=== PATIENT | female | born 1995 | race Caucasian/White ===

== ENCOUNTER 2017-11-14 07:16 | Inpatient (IN) | payer OTHER ==
[~2017-11-14] VITALS: Ht 170.2 cm; Wt 83.0 kg
[~2017-11-14 07:16] MED LIST: HYDR-385 PO; KET10 PO; PREN-127 PO; SULF-198 PO; [UNRECOGNIZED DRUG - REMARK]
[2017-11-17] MEDS ORDERED: FAMOTIDINE(*) 20MG/50ML PREMIX 50 ML IVPB PRN (19:25)
[2017-11-17] MEDS ORDERED: fentaNYL CITR 100 MCG/2 ML AMP IVP PRN (19:25)
[2017-11-17] MEDS ORDERED: LR(*) 1000 ML BAG 1,000 ML IV PRN (19:25)
[2017-11-17] MEDS ORDERED: cefOXitin/DEX(*) 2GM/50ML PREM 50 ML IVPB PRN (19:25)
[2017-11-17] MEDS ORDERED: FLUSH 10 ML SYR IVP PRN (19:25)
[2017-11-17] MEDS ORDERED: LIDOCAINE 1% LOCAL 300 MG/30ML INJ PRN (19:25)
[2017-11-17] MEDS ORDERED: METOCLOPRAMIDE 10 MG/2 ML SDV IVP PRN (19:25)
[2017-11-17] MEDS ORDERED: LIDOCAINE/SOD BICARB 8.4% SYR SC PRN (19:25)
[2017-11-17 20:00] VITALS: BP 122/77; Ht 170.2 cm; Wt 83.0 kg
[2017-11-17] MEDS ORDERED: MISOPROSTOL 25 MCG CAP PV PRN (20:35)
[2017-11-17 20:50] LABS: PLATELET COUNT, AUTOMATED 199 K/uL (150-450)
[2017-11-18] MEDS ORDERED: OXYTOCIN 30 UNIT/D5LR 500 ML 500 ML ONE (03:27)
--- NOTE | 2017-11-18 04:56 | History & Physical ---
History of Present Illness Age of Patient: 22 : 1 Para or TPAL: 0 EDC per LMP: Nov 12, 2017 EDC per U/S: Nov 14, 2017 Estimated Gestational Age: 40.6 Chief Complaint Labor induction for post-term. History of Present Illness Admitted for labor induction due to post-term status, almost 41 weeks. Uncomplicated , although third trimester ultrasound exams were done because fetus was possibly SGA, showing 14th and 20th percentile on exams done at 34 and 36 weeks respectively. No other complications. record is reviewed. History Patient's Blood Type: O Positive Rubella Status: Equivocal Group B Strep Screen: Negative (10/10/2017, lab report not in chart) Obstetrical History: Primigravida. Past Medical History: Exercise-induced asthma, no recent use of meds. Tonsillectomy at age 9. Allergies: Coded Allergies: No Known Allergies (Verified Allergy, Mild, 04/29/11) Social History: , present and supportive. Student. Denies use of alcohol, tobacco, or illicit drugs. Med Rec Home Meds Reported Medications Vits W-Ca,Fe,Fa(<1MG) ( VITAMINS) 1 Each Tablet, 1 EACH PO DAILY, TAB 09/22/17 [No Known Meds] No Conflict Check, 0 Refills 04/29/11 Exam General Exam Vital Signs Vital Signs Date Time Temp Pulse Resp B/P (MAP) Pulse Ox O2 Delivery O2 Flow Rate FiO2 11/17/17 20:00 98.7 90 18 122/77 (92) 96 Room Air General Apperance: Other (alert, in obvious pain due to contractions) Neuro: No Gross deficits Eyes: Normal Extraocular Movement & Vison ENT: Normal, Moist Mucous Membranes Neck: No Masses Cardiovascular: Regular Rate and Rhythm Respiratory: No Respiratory Distress, Clear to Auscultation Abdomen: Gravid - Non-Tender : No CVA Tenderness Musculoskeletal: No Weakness/Pain Extremities: No Cyanosis,Clubbing or Edema, Reflexes (2+/4 and symmetric), No Tender Calves Integumentary: Skin Intact without Lesions or Rash Psychological: Alert & Oriented X3, Appropriate Mood & Affect Cervical Dialation: 2 (per RN on admission) Cervical Effacement (%): 50 Cervical Position: Posterior Presentation: Vertex Fetus Heart Tones: 120 FHT Category: I Medical Decision Making Data Points Result Diagram: 11/17/172044 VTE Prophylasis: Adult Pharmacological Contraindicati: Pt at Low Risk for VTE Mechanical Contraindications: Pt at Low Risk for VTE Assessment and Plan Problems: (1) Post term over 40 weeks Assessment & Plan: Labor induced with a single dose of Misoprostol 25 mcg vaginally, with SROM at about 0145 hours, and good progress in labor. I anticipate a normal vaginal . Patient wants to avoid all analgesia and anesthesia at this time. Copies to: BEHZAD VILLANUEVA MD, MARK F MD Nov 18, 2017 04:56
[2017-11-18] MEDS ORDERED: BENZOCAINE 20% 60 ML BTL TP PRN (06:30)
[2017-11-18] MEDS ORDERED: ACETAMINOPHEN 325 MG TAB PO PRN (06:30)
[2017-11-18] MEDS ORDERED: GLYCERIN/WITCH HAZEL LEAF 1 PK TOP PRN (06:30)
[2017-11-18] MEDS ORDERED: LANOLIN OINT 7 GM TUBE TP PRN (06:30)
--- NOTE | 2017-11-18 06:38 | OB Delivery Note ---
Delivery Note Vaginal Delivery Type: Spont. Vaginal Delivery Delivery Date: Nov 18, 2017 Delivery Time: 05:22 Estimated Gestational Age(wks): 40 6/7 Length of Labor Stage I (hrs): 2.53 Length of Labor Stage II (hrs): 0.44 Labor Stage III (minutes): 13 Delivery Anesthesia: Local Sex: Female Infant Weight (gms): 3250 (7# 2.7 oz) Apgars: 1 Minute (8), 5 Minute (9) Repair Needed: Laceration, Perineal (with bilateral inner labial extensions), 2nd Degree Estimated Blood Loss: 500 (about average EBL) Delivery Complications: Laceration, Nuchal Cord Notes: Spontaneous vaginal delivery of a healthy female infant. Loose nuchal cord easily reduced as the shoulders were delivering. Only laceration was a 2nd degree midline perineal laceration, with bilateral inner labial extensions, close to the level of the urethral meatus. Under local anesthesia with 1% Lidocaine, the extensions were repaired with continuous simple sutures of 3-0 Vicryl. The remainder of the 2nd degree perineal laceration was repaired in layers like an episiotomy with a continuous 3-0 Vicryl suture. No evidence of rectal injury on digital rectal exam. EBL average, about 500 ml. Net Making Supervisor in Attendence: No Copies to: BEHZAD VILLANUEVA MD, MARK F MD Nov 18, 2017 06:38
[2017-11-18] MEDS: IBUPROFEN 800 MG TAB PO SCH ×2 (07:02→14:54)
[2017-11-18 07:05] VITALS: BP 122/73
[2017-11-18] MEDS: MULTIVITAMINS (PRENATAL) TAB PO SCH (09:00)
[2017-11-18 09:15] VITALS: BP 127/61
[2017-11-18] MEDS ORDERED: INFLUENZA VIRUS VAC 0.5 ML SYR IM ONLY ONE (10:00)
[2017-11-18] MEDS ORDERED: DIPHTH/TETANUS/ACEL. PERTUSSIS IM ONLY ONE (10:00)
[2017-11-18] MEDS ORDERED: MEASLES,MUMP,RUBELLA VAC 0.5ML SUBQ ONE (10:00)
[2017-11-18] MEDS: APAP/HYDROCODONE 325/5 TAB PO PRN ×2 (13:11→20:09)
[2017-11-18 13:27] VITALS: BP 116/62
[2017-11-18] MEDS ORDERED: LIDOCAINE 1% LOCAL 300 MG/30ML 30 ML ONE (14:14)
[2017-11-18 17:00] VITALS: BP 123/69
[2017-11-18 20:00] VITALS: BP 123/73
[2017-11-19] MEDS: IBUPROFEN 800 MG TAB PO SCH ×2 (01:00→06:00)
[2017-11-19 03:46] VITALS: BP 112/56
--- NOTE | 2017-11-19 07:43 | OB/GYN Progress Note ---
OB Subjective Progress Notes Subjective Feeling fine, wants to go home. Ambulating and voiding well. Mild lochia. Perineum and labia mildly-moderately tender, but relieved by oral and topical anesthesia. Baby doing well, nursing OK. OB Objective Physical Exam Vital Signs Date Time Temp Pulse Resp B/P (MAP) Pulse Ox O2 Delivery O2 Flow Rate FiO2 11/19/17 03:46 97.8 83 16 112/56 (74) 11/18/17 20:00 Room Air 11/18/17 07:05 96 General Appearance: Alert/Awake/No Acute Distress Cardiovascular: Regular Rate and Rhythm Respiratory: No Respiratory Distress, Clear to Auscultation Abdomen: Soft, Non-Tender, Non-Distended, Bowel Sounds Present, Fundus Firm (U- 1), Non-Tender : No CVA Tenderness Extremities: No Cyanosis,Clubbing or Edema, No Tender Calves Psychological: Alert & Oriented X3, Appropriate Mood & Affect Result Diagram: 11/19/17 0607 Assessment and Plan Problems: (1) Encounter for care and examination of mother immediately after delivery Status: Acute Assessment & Plan: Doing well , ready for discharge today. (2) Post term over 40 weeks Status: Resolved BEHZAD VILLANUEVA MD Nov 19, 2017 07:43
[2017-11-19] MEDS ORDERED: IBUP800T37 PO (07:48)
[2017-11-19] MEDS ORDERED: Benzocaine 60 ML TP (07:48)
[2017-11-19] MEDS ORDERED: ACET-2007 PO (07:48)
[2017-11-19] MEDS ORDERED: TUCKS TOP (07:48)
[2017-11-19] MEDS ORDERED: Lanolin TP (07:48)
--- NOTE | 2017-11-19 07:52 | OB/GYN Discharge Summary ---
Discharge Summary Reason for Hosp/Final Diag: (1) Encounter for care and examination of mother immediately after delivery Status: Acute Hospital Course & Plan: After normal term delivery of a healthy female , the patient had no complications. She was discharged home about 30 hours after delivery, in good condition. (2) Post term over 40 weeks Status: Resolved Lates Vital Signs Vital Signs Date Time Temp Pulse Resp B/P (MAP) Pulse Ox O2 Delivery O2 Flow Rate FiO2 11/19/17 03:46 97.8 83 16 112/56 (74) 11/18/17 20:00 Room Air 11/18/17 07:05 96 Weight (Pounds): 183 Result Diagram: 11/19/17 0607 Condition: Improved Discharge: Home, Self Alf Meds Reported Medications Vits W-Ca,Fe,Fa(<1MG) ( VITAMINS) 1 Each Tablet, 1 EACH PO DAILY, TAB 09/22/17 Discontinued Reported Medications [No Known Meds] No Conflict Check, 0 Refills 04/29/11 [facility] [phone] Follow up in: 6 wks PP or PO Discharge Diet: As Tolerates Discharge Activity: As Tolerates, No Heavy Lifting x 6 wks, Pelvic Rest Special Instructions: Copies to: BEHZAD VILLANUEVA MD, MARK F MD Nov 19, 2017 07:52
[2017-11-19] MEDS ORDERED: DOCUSATE CALCIUM 240 MG CAP PO SCH (09:00)
[2017-11-19] MEDS: MULTIVITAMINS (PRENATAL) TAB PO SCH (09:18)
[2017-11-19 09:20] VITALS: BP 107/70
== END 2017-11-19 11:35 | disposition home or self-care (01) | DRG 775 ==
LOC: OB 11-17 19:20
PROVIDERS: ADMIT Obstetrics & Gynecology; ATTEND Obstetrics & Gynecology
PROC: 3E0P7VZ Introduction of Hormone into Female Reproductive, Via Natural or Artificial Opening (ICD-10-PCS; 2017-11-17)
PROC: 10E0XZZ Delivery of Products of Conception, External Approach (ICD-10-PCS; principal; 2017-11-18)
PROC: 0KQM0ZZ Repair Perineum Muscle, Open Approach (ICD-10-PCS; 2017-11-18)
DX: O48.0 Post-term pregnancy (principal); O70.1 Second degree perineal laceration during delivery; O69.81X0 Labor and delivery complicated by cord around neck, without compression, not applicable or unspecified; Z37.0 Single live birth; Z3A.40 40 weeks gestation of pregnancy
CPT/HCPCS: 36415; 85025; 85027; 86850; 86900; 86901; J2001; J2590